=== PATIENT | male | born 1950 | race African-American/Black ===

== ENCOUNTER 2017-10-14 20:10 | Emergency (ER) | payer OTHER ==
[~2017-10-14] VITALS: Ht 165.1 cm; Wt 71.0 kg
[2017-10-15] MEDS ORDERED: HYDROCODONE/ACETAMINOPHEN 5/325MG TABLET PO ONE (01:15)
[2017-10-15 04:00] VITALS: BP 118/72
== END 2017-10-15 05:27 | disposition home or self-care (01) ==
LOC: ER 20:10
DX: K04.7 Periapical abscess without sinus (principal); M26.602 Left temporomandibular joint disorder, unspecified; I10 Essential (primary) hypertension; J44.9 Chronic obstructive pulmonary disease, unspecified; M19.90 Unspecified osteoarthritis, unspecified site; F17.200 Nicotine dependence, unspecified, uncomplicated
CPT/HCPCS: 70486; 99284

== ENCOUNTER 2018-10-26 19:25 | Emergency (ER) | payer OTHER ==
[~2018-10-26] VITALS: Ht 177.8 cm; Wt 75.0 kg
[~2018-10-26 19:25] MED LIST: GABA800T PO; KETO60VI IM
[2018-10-26] MEDS ORDERED: SODIUM CHLORIDE 0.9% 1,000 ML IV ONE (20:16)
[2018-10-26 20:49] LABS: BASOPHILS % 0.4 % (0.0-2.0); EOSINOPHILS % 0.9 % (0.0-5.0); HEMATOCRIT. 45.2 % (42.0-52.0); HEMOGLOBIN. 15.2 g/dL (14.0-18.0); MEAN CORPUSCULAR HEMOGLOBIN 30.7 pg (28.0-32.0); MEAN CORPUSCULAR VOLUME 91.5 fL (80.0-94.0); MEAN PLATELET VOLUME 9.1 fl (7.4-10.4); MONOCYTES % 7.3 % (2.0-8.0); NEUTROPHILS % 66.4 % (40.0-76.0); PLATELET 154 x1000/uL (130-400); RED BLOOD CELL COUNT 4.94 mill/uL (4.7-6.1); RED CELL DISTRIBUTION WIDTH 12.7 % (11.6-14.6)
[2018-10-26 20:56] LABS: CHLORIDE 110 mEq/L (98-107)
[2018-10-26 20:57] LABS: PROTHROMBIN TIME 10.7 sec (9.6-11.0)
[2018-10-26 22:23] VITALS: BP 123/90
[2018-10-26 22:42] LABS: CLARITY URINE CLEAR (CLEAR); COLOR URINE YELLOW (YELLOW); KETONES URINE NEGATIVE (NEGATIVE); LEUKOCYTE ESTERASE URINE NEGATIVE (NEGATIVE); NITRITE URINE NEGATIVE (NEGATIVE); OCCULT BLOOD URINE NEGATIVE (NEGATIVE); PH URINE 6.5 (4.5-8.0); PROTEIN URINE NEGATIVE (NEGATIVE); SPECIFIC GRAVITY URINE 1.015 (1.005-1.030); UROBILINOGEN URINE 0.2 E.U./dL (0.2-1.0)
== END 2018-10-26 22:25 | disposition home or self-care (01) ==
LOC: ER 19:25
DX: R55 Syncope and collapse (principal); I10 Essential (primary) hypertension
CPT/HCPCS: 36415; 71045; 80053; 81003; 83605; 83880; 84484; 85025; 85610; 93005; 96360; 96361; 99284; J7030

== ENCOUNTER 2019-05-14 21:48 | Emergency (ER) | payer OTHER ==
[~2019-05-14] VITALS: Ht 175.3 cm; Wt 58.7 kg
[2019-05-14] MEDS ORDERED: ALBUTEROL (0.083%) 2.5MG/3ML NEB HHN STA (23:49)
[2019-05-14] MEDS ORDERED: IPRATROPIUM BROMIDE (0.02%) 0.5MG/2.5ML NEB HHN STA (23:49)
[2019-05-14] MEDS ORDERED: PREDNISONE 20MG TABLET PO STA (23:49)
[2019-05-15] MEDS ORDERED: ASPIRIN 81MG TABLET PO ONE
[2019-05-15 00:33] LABS: BASOPHILS % 0.6 % (0.0-2.0); EOSINOPHILS % 1.2 % (0.0-5.0); HEMATOCRIT. 46.6 % (42.0-52.0); HEMOGLOBIN. 15.8 g/dL (14.0-18.0); LYMPHOCYTES % 24.3 % (20.0-50.0); MEAN CORPUSCULAR VOLUME 91.2 fL (80.0-94.0); MEAN PLATELET VOLUME 9.9 fl (7.4-10.4); NEUTROPHILS % 64.9 % (40.0-76.0); PLATELET 145 x1000/uL (130-400); RED BLOOD CELL COUNT 5.11 mill/uL (4.7-6.1)
[2019-05-15 00:41] LABS: CHLORIDE 107 mEq/L (98-107)
[2019-05-15 01:30] VITALS: BP 131/87
== END 2019-05-15 01:44 | disposition home or self-care (01) ==
LOC: ER 21:48
DX: J18.9 Pneumonia, unspecified organism (principal); J44.9 Chronic obstructive pulmonary disease, unspecified; I10 Essential (primary) hypertension; M19.90 Unspecified osteoarthritis, unspecified site; F14.10 Cocaine abuse, uncomplicated; F17.210 Nicotine dependence, cigarettes, uncomplicated; Z71.6 Tobacco abuse counseling
CPT/HCPCS: 36415; 71045; 80053; 83880; 84484; 85025; 93005; 94640; 99284; 99406; J7512; J7611; Z7610

== ENCOUNTER 2020-06-05 06:13 | Emergency (ER) | payer OTHER ==
[~2020-06-05] VITALS: Ht 177.8 cm; Wt 78.0 kg
[2020-06-05] MEDS ORDERED: METHYLPREDNISOLONE SOD SUCC 125 MG/2 ML VIAL IV STA (07:12)
[2020-06-05] MEDS ORDERED: ALBUTEROL 6.7GM HFA INHALER ORI ONE (07:15)
[2020-06-05 08:08] LABS: CHLORIDE 101 mEq/L (98-107)
[2020-06-05 08:39] LABS: BASOPHILS % 0.4 % (0.0-2.0); EOSINOPHILS % 0.8 % (0.0-5.0); HEMATOCRIT. 45.9 % (42.0-52.0); HEMOGLOBIN. 15.1 g/dL (14.0-18.0); LYMPHOCYTES % 17.1 % (20.0-50.0); MEAN CORPUSCULAR HEMOGLOBIN 30.8 pg (28.0-32.0); MEAN CORPUSCULAR VOLUME 93.9 fL (80.0-94.0); MEAN PLATELET VOLUME 8.9 fl (7.4-10.4); MONOCYTES % 7.9 % (2.0-8.0); NEUTROPHILS % 73.8 % (40.0-76.0); PLATELET 154 x1000/uL (130-400); RED BLOOD CELL COUNT 4.89 mill/uL (4.7-6.1); RED CELL DISTRIBUTION WIDTH 13.7 % (11.6-14.6)
[2020-06-05] MEDS ORDERED: ALBUTEROL (0.083%) 2.5MG/3ML NEB HHN STA (09:22)
[2020-06-05] MEDS ORDERED: IPRATROPIUM BROMIDE (0.02%) 0.5MG/2.5ML NEB HHN STA (09:22)
[2020-06-05 09:52] VITALS: BP 124/87
[2020-06-05 12:51] LABS: BG BASE EXCESS -0.8 mmol/L (-2.0-2.0); BG CARBOXYHEMOGLOBIN 2.1 % (0.5-1.5); BG DEOXYHEMOGLOBIN 0.4 % (0.0-5.0); BG FRACTION INSPIRED OXYGEN 100; BG HCO3 ACT 25.1 mmol/L (22.0-26.0); BG METHEMOGLOBIN 0.1 % (0.0-1.5); BG OXYGEN SATURATION 99.6 % (92.0-98.5); BG OXYHEMOGLOBIN 97.4 % (94.0-97.0); BG PCO2 45.9 mmHg (35.0-45.0); BG PH 7.356 (7.350-7.450); BG PO2 274.7 mmHg (75.0-100.0); BG SAMPLE SITE RIGHT RADIAL; BG TOTAL HEMOGLOBIN 15.7 g/dL (12.0-18.0); BG VENT MODE MASK - NRB
== END 2020-06-05 10:00 | disposition home or self-care (01) ==
LOC: ER 06:13
DX: J44.9 Chronic obstructive pulmonary disease, unspecified (principal); I10 Essential (primary) hypertension; F14.10 Cocaine abuse, uncomplicated
CPT/HCPCS: 36415; 36600; 71045; 80053; 82375; 82805; 83880; 84484; 85025; 87635; 87804; 93005; 96374; 99285; J2930; Z7610

== ENCOUNTER 2020-07-16 13:21 | Emergency (ER) | payer OTHER ==
[~2020-07-16] VITALS: Ht 182.9 cm; Wt 77.0 kg
[2020-07-16] MEDS ORDERED: THROMBIN (BOVINE) 5000 UNITS/VIAL TOP ONE ×2 (16:30→17:45)
[2020-07-16 18:49] VITALS: BP 137/91
== END 2020-07-16 19:00 | disposition home or self-care (01) ==
LOC: ER 13:59
DX: R04.0 Epistaxis (principal); R56.9 Unspecified convulsions
CPT/HCPCS: 99283; J3490